=== PATIENT | female | born 1980 | race African-American/Black ===

== ENCOUNTER 2017-07-13 14:58 | Emergency (ER) | payer SELFPAY ==
[~2017-07-13] VITALS: Ht 157.5 cm; Wt 54.4 kg
[~2017-07-13 14:58] MED LIST: CLINDAMYCIN HC300 MG ORAL; DIPHENHYDRAMINE25 M1 ORAL; PREDNISONE20 MG ORAL
--- NOTE | 2017-07-13 15:50 | Emergency Room Report ---
History of Present Illness General Chief Complaint: Hypertension Source: Patient Present Illness HPI 37-year-old female presents to the emergency department for 2 days of elevated blood pressure. Patient states that she had a physical exam and the [facility] yesterday and was instructed to repeat her blood pressure this morning and if it continues to be elevated that she needs to go immediately to the emergency department. denies floaters, flashing lights, weakness, facial droop, dysarthria, dysphagia. Patient denies dizziness, changes in vision, headaches, nausea, vomiting. Patient denies previous history of hypertension. Denies CP, Palpitations, LOC, AMS, dizziness, Changes in Vision, Sensation, paresthesias, or a sudden severe headache. Allergies: Coded Allergies: PENICILLINS (Verified Allergy, Unknown, 02/06/09) Patient History Past Medical History: see triage record Past Surgical History: none Pertinent Family History: none Last Menstrual Period: mirena Now: No Immunizations: UTD Reviewed Nursing Documentation: PMH: Agreed, PSxH: Agreed Nursing Documentation-PMH Past Medical History: No Stated History Review of Systems All Other Systems: negative except mentioned in HPI Physical Exam Vital Signs Date Time Temp Pulse Resp B/P (MAP) Pulse Ox O2 Delivery O2 Flow Rate FiO2 07/13/17 15:17 98.2 65 18 178/121 98 Room Air Sp02 EP Interpretation: reviewed, normal General Appearance: no apparent distress, alert, GCS 15, non-toxic Head: normocephalic, atraumatic Eyes: bilateral eye normal inspection, bilateral eye PERRL ENT: hearing grossly normal, normal voice Neck: full range of motion, supple/symm/no masses Respiratory: lungs clear, normal breath sounds, no wheezing, speaking full sentences Cardiovascular #1: regular rate, rhythm, no edema, normal capillary refill Gastrointestinal: non tender, soft Rectal: deferred Musculoskeletal: back normal, gait/station normal, normal range of motion, non- tender Neurologic: alert, oriented x3, responsive, motor strength/tone normal, sensory intact, normal gait, speech normal, no pronator, other - no facial droop , equal natural foods clerk strength Psychiatric: anxious Skin: normal color, no rash, warm/dry, well hydrated Lymphatic: no adenopathy Medical Decision Making PA Attestation Dr. castro is my supervising Physician whom patient management has been discussed with. Diagnostic Impression: Primary Impression: Asymptomatic hypertension ER Course 37-year-old female presents to the emergency department for 2 days of elevated blood pressure. Patient states that she [place] [facility] [place] and was instructed to repeat her blood pressure this morning and if it continues to be elevated that she needs to go immediately to the emergency department. denies floaters, flashing lights, weakness, facial droop, dysarthria, dysphagia. Patient denies dizziness, changes in vision, headaches, nausea, vomiting. Patient denies previous history of hypertension. Denies CP, Palpitations, LOC, AMS, dizziness, Changes in Vision, Sensation, paresthesias, or a sudden severe headache. Ddx considered but are not limited to elevated BP, HTN urgency/emergency, thyroid storm, CVA just to name a few. Vital signs: are WNL, pt. is afebrile H&PE are most consistent with Asymptomatic HTN , NO evidence to suggest acute stroke, pt. denies visual disturbances/changes. ORDERS: none required at this time, the diagnosis is clinical ED INTERVENTIONS: Clonidine 0.1mg PO - 10Mg Norvasc PO -I D/W patient that I will place her on blood pressure medication as this is the second elevated reading on two separate occasions that she has had. I discussed side effects such as dizziness upon standing too quickly, syncope, and hypotension. I Discussed with patient that she needs to followup within the next 3-5 days with a primary care physician as these medications may need to be adjusted. This patient is also given a list of primary care clinics that are free/reduce costs that she can followup with.. she verbalizes her understanding and agreement with this proposed treatment plan DISCHARGE: At this time pt. is stable for d/c to home. Will provide printed patient care instructions, and any necessary prescriptions. Care plan and follow up instructions have been discussed with the patient prior to discharge. Last Vital Signs Date Time Temp Pulse Resp B/P (MAP) Pulse Ox O2 Delivery O2 Flow Rate FiO2 07/13/17 15:45 172/98 07/13/17 15:44 62 07/13/17 15:17 98.2 18 98 Room Air Disposition: HOME, SELF-CARE Condition: Stable Scripts Blood Pressure Kit Med & Lrg (BLOOD PRESSURE MONITOR) 1 Each Kit EACH MC for For High Blood Pressure, #1 Prov: Aleah Gannon 07/13/17 Hydrochlorothiazide* (HYDROCHLOROTHIAZIDE*) 12.5 Mg Capsule 12.5 MG ORAL DAILY, #30 CAP Prov: Aleah Gannon 07/13/17 Amlodipine Besylate (Norvasc) 5 Mg Tablet 5 MG ORAL DAILY, #20 TAB Prov: Aleah Gannon 07/13/17 Patient Instructions: High Blood Pressure (Hypertension) Additional Instructions: Take medications as directed. Follow up with a Primary Care Provider in 3-5 days, even if your symptoms have resolved. --Please review list of primary care clinics, if you do not already have a primary care provider Return sooner to ED if new symptoms occur, or current symptoms become worse. - Please note that this Emergency Department Report was dictated using [employer] compressor operator technology software, occasionally this can lead to erroneous entry secondary to interpretation by the dictation equipment. Aleah Gannon Jul 13, 2017 15:50
[2017-07-13] MEDS ORDERED: NORVASC5 MG ORAL (16:42)
[2017-07-13] MEDS ORDERED: HYDROCHLOROTH12.5 M2 ORAL (16:42)
[2017-07-13] MEDS ORDERED: BLOOD PRESSURE1 EA10 MC (16:51)
[2017-07-13 17:50] VITALS: BP 172/98
== END 2017-07-13 18:00 | disposition home or self-care (01) ==
LOC: EMR 16:50
DX: I10 Essential (primary) hypertension (principal); Z88.0 Allergy status to penicillin
CPT/HCPCS: 99284